=== PATIENT | female | born 1945 | race Caucasian/White ===

== ENCOUNTER 2020-09-26 08:36 | Outpatient (CLI) | payer MEDICARE ==
[2020-09-26 10:48] LABS: ALT (SGPT) 8 U/L (8-55); AST (SGOT) 17 U/L (5-34); Alkaline Phosphatase 101 U/L (40-110); Anion Gap 15 mmol/L (10-20); BUN (Urea Nitrogen) 17 mg/dL (9.8-20.1); Bilirubin, Total 0.8 mg/dL (0.2-1.2); Calc. Creatinine Clearance 0 mL/min (70-130); Calcium 9.7 mg/dL (7.8-10.44); Carbon Dioxide 26 mmol/L (23-31); Chloride 103 mmol/L (98-107); Cholesterol 200 mg/dl (< 200 Desired); Globulin 3.8 g/dL (2.4-3.5); Glucose 112 mg/dL (83-110); HDL Cholesterol 67 mg/dL (>60 Neg Risk); LDL Cholesterol, Calculated 110 mg/dL; Potassium 4.3 mmol/L (3.5-5.1); Protein, Total 7.8 g/dL (5.8-8.1); Triglycerides 115 mg/dL (Less than 150)
[2020-09-26 10:53] LABS: Sodium 140 mmol/L (136-145)
== END 2020-09-26 08:37 | disposition home or self-care (01) ==
LOC: MADLAB 08:36
DX: E78.00 Pure hypercholesterolemia, unspecified (principal)
CPT/HCPCS: 36415; 80053; 80061